=== PATIENT | female | born 1935 | race Caucasian/White ===

== ENCOUNTER 2019-01-19 09:27 | Day surgery (SDC) | payer OTHER ==
[2019-01-19] MEDS ORDERED: PROPOFOL 40 ML (11:15)
[2019-01-19] MEDS ORDERED: LIDOCAINE 2% (SDV) 5 ML INJ (11:16)
[2019-01-19] MEDS ORDERED: FENTAnyl 50 MCG/ML VIAL IV (11:30)
[2019-01-19] MEDS ORDERED: ONDANSETRON 4 MG INJ IV (11:30)
== END 2019-01-19 12:06 | disposition home or self-care (01) ==
LOC: GIL 09:27
DX: Z12.11 Encounter for screening for malignant neoplasm of colon (principal); K64.4 Residual hemorrhoidal skin tags; K29.00 Acute gastritis without bleeding; I10 Essential (primary) hypertension; F03.90 Unspecified dementia, unspecified severity, without behavioral disturbance, psychotic disturbance, mood disturbance, and anxiety
CPT/HCPCS: 43239; 88305; 88312